=== PATIENT | female | born 1945 | race Caucasian/White ===

== ENCOUNTER 2018-11-01 02:11 | Emergency (ER) | payer OTHER, MEDICARE ==
[2018-11-01 02:46] VITALS: BP 124/69; PULSE 88; TEMP 97.2
[2018-11-01 03:24] VITALS: BMI 28.1
[2018-11-01] MEDS ORDERED: SULFAMETHOXAZOLE/TRIMETHOPRIM 800MG/160MG D.S. TABLET PO ONE (03:54)
[2018-11-01] MEDS ORDERED: CEPHALEXIN MONOHYDRATE 500 MG CAPSULE (UD) PO ONE (03:54)
[2018-11-01] MEDS ORDERED: SULFAMETHOXAZOLE/TRIMETHOPRIM 800MG/160MG D.S. TABLET ONE (04:02)
[2018-11-01] MEDS ORDERED: CEPHALEXIN MONOHYDRATE 500 MG CAPSULE (UD) ONE (04:03)
--- NOTE | 2018-11-01 05:10 | PDOC ---
History of Present Illness - General Chief Complaint: Abscess Boil Stated Complaint: ABSCESS Time Seen by Provider: 11/01/18 02:15 - History of Present Illness Initial Comments: 11/01/18 04:46 73yo F hx NIDDM, HTN, HL, hypothyroidism, Vtach s/p amiodarone presents to the ED for cyst to her L lower back. Pt reports she has had the cyst for a while but over the last 12 hours it has hurt a lot more and felt like "yanira cabrera" prompting her to come to the ED. She denies associated fevers, chills, drainage. Has never had an abscess in the past. No treatments tried. Pt made appt with [facility] director for removal of the cyst prior to the pain getting worse 12 hours ago. Denies recent cp, sob, weakness/numbness, headache, LE edema, N/V/D, abd pain. Past History - Past Medical History Allergies/Adverse Reactions: Allergies Allergy/AdvReac Type Severity Reaction Status Date / Time No Known Allergies Allergy Verified 07/07/16 13:33 Home Medications: Ambulatory Orders Amiodarone HCl 100 mg PO DAILY 07/07/16 Amlodipine Besylate 10 mg PO DAILY 07/07/16 Aspirin [Aspirin EC] 162 mg PO DAILY 07/07/16 Metoprolol Succinate [Toprol Xl] 200 mg PO BID 07/07/16 Rosuvastatin Calcium [Crestor] 40 mg PO HS 07/07/16 metFORMIN HCL [Metformin HCl] 500 mg PO BID 07/07/16 Alprazolam 2 mg PO HS 11/01/18 Cephalexin [Keflex] 500 mg PO Q6H #28 capsule 11/01/18 Irbesartan 300 mg PO DAILY 11/01/18 Levothyroxine [Synthroid -] 75 mcg PO DAILY 11/01/18 Sulfamethoxazole/Trimethoprim [Bactrim Ds Tablet] 1 each PO BID #14 tablet 11/01 Ubidecarenone/Vit E Acet [Co Q-10 100 mg Softgel] 1 each PO DAILY 11/01/18 COPD: No Diabetes: Yes HTN: Yes Hypercholesterolemia: Yes - Suicide/Smoking/Psychosocial Hx Smoking History: Never smoked Have you smoked in the past 12 months: Yes Number of Cigarettes Smoked Daily: 2 Hx Alcohol Use: No Drug/Substance Use Hx: No Review of Systems - Review of Systems Comments:: 11/01/18 04:50 GENERAL/CONSTITUTIONAL: No fever or chills. No weakness. HEAD, EYES, EARS, NOSE AND THROAT: No change in vision. No ear pain or discharge. No sore throat. GASTROINTESTINAL: No nausea, vomiting, diarrhea or constipation. GENITOURINARY: No dysuria, frequency, or change in urination. CARDIOVASCULAR: No chest pain or shortness of breath. RESPIRATORY: No cough, wheezing, or hemoptysis. MUSCULOSKELETAL: No joint or muscle swelling or pain. No neck or back pain. SKIN: +cyst to back NEUROLOGIC: No headache, vertigo, loss of consciousness, or change in strength/ sensation. ENDOCRINE: No increased thirst. No abnormal weight change. HEMATOLOGIC/LYMPHATIC: No anemia, easy bleeding, or history of blood clots. ALLERGIC/IMMUNOLOGIC: No hives or skin allergy. *Physical Exam - Vital Signs Last Vital Signs Temp Pulse Resp BP Pulse Ox 97.2 F L 88 18 124/69 96 11/01/18 02:12 11/01/18 02:12 11/01/18 02:12 11/01/18 02:12 11/01/18 02:12 - Physical Exam Comments: 11/01/18 05:22 GENERAL: Awake, alert, and fully oriented, in no acute distress. Pleasant, comfortable ENT: Moist mucosa LUNGS: Breath sounds equal, clear to auscultation bilaterally. No wheezes, and no crackles HEART: Regular rate and rhythm, normal S1 and S2, no murmurs, rubs or gallops ABDOMEN: Soft, nontender, normoactive bowel sounds. No guarding, no rebound. No masses EXTREMITIES: Normal range of motion, no edema. No clubbing or cyanosis. No cords, erythema, or tenderness NEUROLOGICAL: Normal speech, cranial nerves intact, equal strength and sensation b/l. Normal gait SKIN: L lower back with 6x4cm subcutaneous patch of induration, tender with very mild overlying erythema with no fluctance, warmth or point of drainage Moderate Sedation - Procedure Monitoring Vital Signs: Procedure Monitoring Vital Signs Temperature 97.2 F L 11/01/18 02:12 Pulse Rate 88 11/01/18 02:12 Respiratory Rate 18 11/01/18 02:12 Blood Pressure 124/69 11/01/18 02:12 O2 Sat by Pulse Oximetry (%) 96 11/01/18 02:12 ED Treatment Course - Medications Given in the ED: ED Medications Discontinued Medications Generic Name Dose Route Start Last Admin Trade Name Lizette PRN Reason Stop Dose Admin Cephalexin HCl 500 mg 11/01/18 03:54 11/01/18 04:03 Keflex - PO 11/01/18 03:55 500 mg ONCE ONE Administration Trimethoprim/Sulfamethoxazole 1 each 11/01/18 03:54 11/01/18 04:03 Bactrim Ds - PO 11/01/18 03:55 1 each ONCE ONE Administration Medical Decision Making - Medical Decision Making 11/01/18 05:25 73yo F with MMP including NIDDM presents ot the ED with painful cyst, on exam found to have early cellulitis w/o collection for drainage. Vitals wnl. Pt is non toxic with no systemic sxs of infection. In light of hx DM, will treat with bactrim and keflex. Pt referred to gen surgery for f/u. Pt clinically stable for DC home I discussed the physical exam findings, ancillary test results and final diagnoses with the patient. I answered all of the patient's questions. The patient was satisfied with the care received and felt comfortable with the discharge plan and treatment plan. The patient will call their primary care physician within 24 hours to arrange follow-up and will return to the Emergency Department with any new, persistent or worsening symptoms. *DC/Admit/Observation/Transfer Diagnosis at time of Disposition: Skin abscess - Discharge Dispostion Disposition: HOME Condition at time of disposition: Stable - Prescriptions Prescriptions: Cephalexin [Keflex] 500 mg PO Q6H #28 capsule Sulfamethoxazole/Trimethoprim [Bactrim Ds Tablet] 1 each PO BID #14 tablet - Referrals Referrals: Johnny Park MD [Staff Physician] - Jarod Gold MD [Staff Physician] - Karrie Ziegler [Primary Care Provider] - - Patient Instructions Printed Discharge Instructions: DI for Skin Abscess Additional Instructions: Make an appointment with Dr. Gold or Dr. Park from general surgery within 1 week Take the antibiotics as prescribed Return to the emergency department if you have any new, worsening, or concerning symptoms It was a pleasure taking care of you today, we hope you feel better soon! - Post Discharge Activity - Transfer to Acute Care Facility Transfer comment: 11/01/18 05:29 I, Dr. Dayami Maciel MD, attest that this document has been prepared under my direction and personally reviewed by me in its entirety. I further attest, that it accurately reflects all work, treatment, procedures and medical decision -making performed by me.
== END 2018-11-01 04:07 | disposition home or self-care (01) ==
LOC: FER 02:11
DX: L02.212 Cutaneous abscess of back [any part, except buttock and flank] (principal); I10 Essential (primary) hypertension; E78.5 Hyperlipidemia, unspecified; E11.9 Type 2 diabetes mellitus without complications; E03.9 Hypothyroidism, unspecified; I47.2 Ventricular tachycardia; Z79.82 Long term (current) use of aspirin; Z79.84 Long term (current) use of oral hypoglycemic drugs
CPT/HCPCS: 99281-25

== ENCOUNTER 2021-08-18 02:59 | Emergency (ER) | payer OTHER, MEDICARE ==
[2021-08-18 03:07] VITALS: BP 124/58; PULSE 67; TEMP 97.7; BMI 23.3
== END 2021-08-18 03:36 | disposition home or self-care (01) ==
LOC: FER 02:59
DX: K59.00 Constipation, unspecified (principal)
CPT/HCPCS: 99281-25